=== PATIENT | female | born 1975 | race Caucasian/White ===

== ENCOUNTER → 2018-04-24 | Outpatient (CLI) | payer OTHER ==
--- NOTE | 2018-04-24 09:45 | RAD ---
Thyroid ultrasound, 04/24/2018: HISTORY: Thyroid nodule The right lobe of the gland measures 5.9 x 1.9 x 1.7 cm while the left lobe of the gland measures 4.7 x 1.6 x 1.4 cm. The thyroid echo pattern is heterogeneous. There is a subtle smooth nodule in the posterior aspect of the lower pole of the right lobe of the gland. It is slightly hypoechoic relative to the remainder of the gland. It measures 10 x 9 x 7 mm. It is wider than tall. No calcifications are seen. It has shown no significant change since 11/04/2014. No other discrete thyroid nodule is seen. IMPRESSION: 1. Heterogeneous thyroid gland. 2. Stable small right thyroid nodule with no suspicious features. Electronically signed by: Raul Deleon MD (04/24/2018 9:42 AM) [facility]
--- NOTE | 2018-04-24 14:34 | RAD ---
DATE: 04/24/2018 EXAM: MAMMO AMBROCIO SCREENING BILATERAL HISTORY: Bilateral breast implants COMPARISON: Baseline study This study was interpreted with the benefit of Computerized Aided Detection (CAD). The breast parenchyma shows scattered fibroglandular densities. Breast parenchyma level B. FINDINGS: Routine and implant exclusion 2-D views were obtained followed by implant exclusion tomosynthesis imaging in CC and MLO projections. The images are of suboptimal quality due to technical difficulties. Bilateral retropectoral implants are evident. There are several small smooth benign-appearing microcalcifications in both breasts. No spiculated mass or architectural distortion is seen. Punctate radiopacities projected over both axillary regions have the appearance of deodorant type artifacts. Small benign-appearing lymph nodes are present in the left axilla. IMPRESSION: Probably benign microcalcifications in both breasts. Follow-up bilateral mammography in 6 months and then at yearly intervals is suggested. BI-RADS CATEGORY: 3 PROBABLY BENIGN FINDING(S)-SHORT INTERVAL FOLLOW-UP SUGGESTED RECOMMENDED FOLLOW-UP: 6M 6 MONTH FOLLOW-UP PQRS compliance statement: Patient information was entered into a reminder system with a target due date for the next mammogram. Mammography is a sensitive method for finding small breast cancers, but it does not detect them all and is not a substitute for careful clinical examination. A negative mammogram does not negate a clinically suspicious finding and should not result in delay in biopsying a clinically suspicious abnormality. "Our facility is accredited by the [employer] Mammography [employer]."
== END | disposition home or self-care (01) ==
LOC: US 08:09
PROVIDERS: ATTEND Neuromusculoskeletal Medicine & OMM
DX: Z12.31 Encounter for screening mammogram for malignant neoplasm of breast (principal); E04.1 Nontoxic single thyroid nodule; I10 Essential (primary) hypertension; E03.9 Hypothyroidism, unspecified
CPT/HCPCS: 76536; 77063; 77067

== ENCOUNTER → 2018-05-16 | Outpatient (CLI) | payer OTHER ==
--- NOTE | 2018-05-16 15:09 | RAD ---
Bilateral breast ultrasound, 05/16/2018: History: Breast implants, screening study. Microcalcifications on mammography Both breasts were carefully scanned. Bilateral breast implants are in place. No solid mass or abnormal fluid collection is seen in either breast. IMPRESSION: No significant abnormality is detected.
== END | disposition home or self-care (01) ==
LOC: US 14:02
PROVIDERS: ATTEND Neuromusculoskeletal Medicine & OMM
DX: R92.8 Other abnormal and inconclusive findings on diagnostic imaging of breast (principal); E03.9 Hypothyroidism, unspecified; I10 Essential (primary) hypertension
CPT/HCPCS: 76641

== ENCOUNTER → 2019-01-07 | Outpatient (CLI) | payer OTHER ==
--- NOTE | 2019-01-07 16:38 | RAD ---
DATE: 01/05/2019 EXAM: MAMMO AMBROCIO DIASherlyn BILAT HISTORY: Follow-up for calcifications COMPARISON: 04/24/2018 screening mammographic exam This study was interpreted with the benefit of Computerized Aided Detection (CAD). Breast Density: SCATTERED The breast parenchyma shows scattered fibroglandular densities. Breast parenchyma level B. FINDINGS: Bilateral subpectoral implants are again identified. Contours are intact. Benign-appearing calcifications bilaterally are present and stable. No suspicious new calcification. No distortion. No mass. IMPRESSION: No significant change. BI-RADS CATEGORY: 2 BENIGN FINDING(S) RECOMMENDED FOLLOW-UP: 12M 12 MONTH FOLLOW-UP PQRS compliance statement: Patient information was entered into a reminder system with a target due date in one year for the next mammogram. Mammography is a sensitive method for finding small breast cancers, but it does not detect them all and is not a substitute for careful clinical examination. A negative mammogram does not negate a clinically suspicious finding and should not result in delay in biopsying a clinically suspicious abnormality. "Our facility is accredited by the [employer] Mammography [employer]."
== END | disposition home or self-care (01) ==
LOC: MAMMO 13:16
PROVIDERS: ATTEND Family Medicine
DX: R92.8 Other abnormal and inconclusive findings on diagnostic imaging of breast (principal); Z98.82 Breast implant status
CPT/HCPCS: 77066; G0279; 77062

== ENCOUNTER → 2020-07-01 | Outpatient (CLI) | payer OTHER ==
--- NOTE | 2020-07-01 14:33 | RAD ---
DATE: 07/01/2020 9:00 AM EXAM: MAMMO AMBROCIO SCREENING BILATERAL HISTORY: Screening COMPARISON: 01/07/2019 Bilateral CC and MLO views of the breasts were performed. Bilateral breast tomosynthesis was performed in CC and MLO projections. This study was interpreted with the benefit of Computerized Aided Detection (CAD). FINDINGS: Breast Density: FATTY The Breast Parenchyma is primarily fatty replaced. Breast parenchyma level density A. Bilateral subpectoral saline implants are redemonstrated. No suspicious masses, microcalcifications or architectural distortion is present to suggest malignancy in either breast. The visualized axillae are unremarkable. IMPRESSION: No mammographic evidence of malignancy. BI-RADS CATEGORY: 1 NEGATIVE RECOMMENDED FOLLOW-UP: 12M 12 MONTH FOLLOW-UP Annual screening mammography is recommended, unless clinically indicated sooner based on symptoms or change in physical exam. PQRS compliance statement: Patient information was entered into a reminder system with a target due date for the next mammogram. Mammography is a sensitive method for finding small breast cancers, but it does not detect them all and is not a substitute for careful clinical examination. A negative mammogram does not negate a clinically suspicious finding and should not result in delay in biopsying a clinically suspicious abnormality. "Our facility is accredited by the [employer] Mammography [employer]."
== END ==
LOC: MAMMO 08:40
PROVIDERS: ATTEND Family Medicine
DX: Z12.31 Encounter for screening mammogram for malignant neoplasm of breast (principal)
CPT/HCPCS: 77063; 77067

== ENCOUNTER → 2021-07-20 | Outpatient (CLI) | payer OTHER ==
--- NOTE | 2021-07-20 15:13 | RAD ---
BILATERAL SCREENING MAMMOGRAM History: Routine screening. Comparison: Most recently on 07/01/2020. Technique: Routine 2D and 3D tomosynthesis digital mammogram views were obtained bilaterally to inclu de implant displaced and nondisplaced views. Interpretation was assisted with the use of computer-aid ed detection. Findings: Breast Tissue Density B : There are scattered areas of fibroglandular density. There are no dominant masses, suspicious microcalcifications, or architectural distortion. Unchanged configuration of bilateral saline implants. IMPRESSION: No mammographic evidence of malignancy. Recommend routine screening mammography in one year. BI-RADS category 1: Negative. Patient information is entered into the reminder system with a target due date for the next screening mammogram. "Our facility is accredited by the [employer] Mammography [employer]." Electronically signed by: ALLIE SERRATO MD (07/20/2021 3:10 PM) [id number]
== END ==
LOC: MAMMO 09:42
PROVIDERS: ATTEND Family Medicine
DX: Z12.31 Encounter for screening mammogram for malignant neoplasm of breast (principal)
CPT/HCPCS: 77063; 77067